=== PATIENT | female | born 1935 | race Caucasian/White ===

== ENCOUNTER 2021-02-11 17:27 | Inpatient (IN) | payer MEDICARE ==
[~2021-02-11] VITALS: Ht 180.3 cm; Wt 48.5 kg
[~2021-02-11 17:27] MED LIST: AUGMENTIN 875-1 EACH PO; CALCIUM OTC PO; ECOTRIN81 MG PO; FLOVENT 220.1 GM/INH INH; FUROSEMIDE40 MG PO; LASIX20 MG PO; LEVOFLOXACIN250 MG PO; LEVOFLOXACIN750 MG PO; LOPRESSOR 25 MG25 MG PO; NASONEX17 GM; NORCO 10-325 T1 EACH PO; PROAIR DIGIHAL90 MCG INH; THERAGRAN M TAB1 EA PO; VITAMIN C OTC PO; VITAMIN D OTC PO; ZITHROMAX TRI-500 MG PO; ZITHROMAX500 MG PO
[2021-02-11 19:11] LABS: HEMOGLOBIN 15.6 gm/dl (12.3-15.3); RED BLOOD COUNT 4.67 M/UL (4.00-5.10); WHITE BLOOD COUNT 16.5 K/UL (4.5-11.0)
[2021-02-11 19:24] LABS: BUN/CREATININE RATIO 25 (0-10)
--- NOTE | 2021-02-11 23:54 | NUR ---
0000-PATIENT HAS ORDER FOR TELE. TELEMETRY HAS NO TELEMETRY MONITORS. NOTIFIED DR CONTRERAS. HE STATED THAT HE AT LEAST WANTED PATIENT TO BE ON PULSE OX. NOTIFIED HOUSE AND SHE SAID TO PUT PATIENT ON VITALS MACHINE AND LEAVE THE DOOR OPENED SO WE COULD HEAR IT ALARM IF OXYGEN LEVEL WAS DROPPING.
[2021-02-12 04:11] LABS: HEMOGLOBIN 12.7 gm/dl (12.3-15.3); RED BLOOD COUNT 3.81 M/UL (4.00-5.10); WHITE BLOOD COUNT 10.3 K/UL (4.5-11.0)
[2021-02-12 04:37] LABS: BUN/CREATININE RATIO 23 (0-10)
[2021-02-12] MEDS ORDERED: ECOTRIN81 MG PO (12:17)
[2021-02-12] MEDS ORDERED: CALCIUM500 MG PO (12:18)
[2021-02-12] MEDS ORDERED: VITAMIN C 500500 MG PO (12:18)
[2021-02-12] MEDS ORDERED: VITAMIN D 40400 UNIT PO (12:19)
[2021-02-12] MEDS ORDERED: DAILY VITE1 EACH PO (12:19)
[2021-02-13 06:45] LABS: BUN/CREATININE RATIO 14 (0-10)
[2021-02-13] MEDS ORDERED: MACROBID 100 M100 MG PO (12:01)
== END 2021-02-13 16:18 | disposition home or self-care (01) | DRG 871 ==
LOC: ER1 17:27 → MED SURG 4 20:22 → CDU 20:22 → MED SURG 4 22:47
PROVIDERS: Internal Medicine; Physician Assistant; ADMIT Internal Medicine
DX: A41.9 Sepsis, unspecified organism (principal); I50.33 Acute on chronic diastolic (congestive) heart failure; E43 Unspecified severe protein-calorie malnutrition; J96.01 Acute respiratory failure with hypoxia; N30.00 Acute cystitis without hematuria; Z68.1 Body mass index [BMI] 19.9 or less, adult; Z20.822 Contact with and (suspected) exposure to COVID-19; E86.0 Dehydration
CPT/HCPCS: 36415; 71045; 71250; 80048; 80053; 81001; 82550; 82553; 83036; 83605; 83735; 83880; 84100; 84439; 84443; 84484; 85025; 85027; 85610; 85652; 85730; 86140; 87040; 87086; 94760; 96365; 97116-GP-CQ; 97162; 99285; J0696; J1650; J2543; J3475; J7030; U0002

== ENCOUNTER 2021-08-26 02:32 | Emergency (ER) | payer MEDICARE ==
[~2021-08-26 02:32] MED LIST changes: +CALCIUM500 MG PO; +DAILY VITE1 EACH PO; +MACROBID 100 M100 MG PO; +VITAMIN C 500500 MG PO; +VITAMIN D 40400 UNIT PO
[2021-08-26 03:02] LABS: HEMOGLOBIN 14.4 gm/dl (12.3-15.3); RED BLOOD COUNT 4.35 M/UL (4.00-5.10); WHITE BLOOD COUNT 13.2 K/UL (4.5-11.0)
[2021-08-26 03:21] LABS: BUN/CREATININE RATIO 29 (0-10)
== END 2021-08-26 05:45 | disposition home or self-care (01) ==
LOC: ER1 02:32
PROVIDERS: Physician Assistant
DX: N39.0 Urinary tract infection, site not specified (principal); E86.0 Dehydration; E87.6 Hypokalemia; Z20.822 Contact with and (suspected) exposure to COVID-19
CPT/HCPCS: 51701; 71045; 80053; 81001; 82550; 82553; 83605; 83874; 84484; 85025; 87040; 87086; 93005; 96374; 99285; J0696; U0002

== ENCOUNTER → 2022-03-24 | Outpatient (CLI) | payer MEDICARE | LOC: RAD 07:50 | DX: R13.10 Dysphagia, unspecified (principal); Q39.6 Congenital diverticulum of esophagus | CPT/HCPCS: 74221 ==